=== PATIENT | female | born 1950 | race Caucasian/White ===

== ENCOUNTER 2023-06-15 12:47 | Emergency (ER) | payer MEDICARE, OTHER ==
[2023-06-15] VITALS (7 sets, daily range): BP systolic 118–160; BP diastolic 71–90
[~2023-06-15] VITALS: Ht 165.1 cm; Wt 122.4 kg
[2023-06-15 13:58] LABS: URINE BILIRUBIN - DIPSTICK Negative (NEGATIVE); URINE BLOOD DIPSTICK Trace-intact (NEGATIVE); URINE GLUCOSE - DIPSTICK Negative (NEGATIVE); URINE KETONE Negative (NEGATIVE); URINE NITRITE - DIPSTICK Negative (Negative); URINE PH 5.5 (4.5-8.0); URINE PROTEIN - DIPSTICK Negative (NEG-TRACE); URINE SPECIFIC GRAVITY 1.015; URINE UROBILINOGEN - DIPSTICK 0.2 E.U./dL (0.2)
[2023-06-15 13:59] LABS: URINE COLOR Yellow
[2023-06-15 14:01] LABS: URINE LEUK ESTERASE Small (NEGATIVE)
[2023-06-15 14:17] LABS: URINE RBC 0-2 RBC/hpf (0-5)
[2023-06-15 14:18] LABS: URINE SQUAMOUS EPITHELIAL CELL FEW EPI/hpf (0-FEW)
[2023-06-15 14:19] LABS: URINE BACTERIA MODERATE hpf
[2023-06-15] MEDS ORDERED: KEFLEX500 MG PO (14:22)
--- NOTE | 2023-06-17 10:31 | NUR ---
Attempted to contact pt regarding urine culture results and need for change in antibiotic. No answer, left voicemail to return call to Pharmacy department.
== END 2023-06-15 14:46 | disposition home or self-care (01) ==
LOC: ED 12:47
PROVIDERS: Nurse Practitioner
DX: N30.90 Cystitis, unspecified without hematuria (principal); B96.20 Unspecified Escherichia coli [E. coli] as the cause of diseases classified elsewhere